=== PATIENT | female | born 1980 | race Caucasian/White ===

== ENCOUNTER 2017-06-23 09:24 | Emergency (ER) | payer OTHER ==
[2017-06-23 09:36] VITALS: O2SAT 100
--- NOTE | 2017-06-23 10:16 | C.PDOC ---
History Of Present Illness 37 y/o female presents to ED with complaints of intermittent headache for 5 days. Patient states she been taking Motrin with transient relief of headache. She admits to feeling stressed with academics. She reports frequent headaches, but has not been fully evaluated and does not know if she has migraines or family history. She describes headache starting at base and going around her whole head and varies in severity most is 8 out of 10 on pain scale. She denies this is worst headache of her life. She denies any fever, neck pain, trauma, change in vision, nausea or vomiting. Time Seen by Provider: 06/23/17 10:02 Chief Complaint (Nursing): Headache History Per: Patient History/Exam Limitations: no limitations Onset/Duration Of Symptoms: Days Current Symptoms Are (Timing): Still Present Quality: "Pain" Past Medical History Reviewed: Historical Data, Nursing Documentation, Vital Signs Vital Signs: Last Vital Signs Temp 98.5 F 06/23/17 11:13 Pulse 61 06/23/17 11:13 Resp 20 06/23/17 11:13 BP 110/76 06/23/17 11:13 Pulse Ox 100 06/23/17 11:13 - Medical History PMH: No Chronic Diseases Surgical History: No Surg Hx Family History: States: No Known Family Hx - Social History Hx Tobacco Use: No Hx Alcohol Use: No Hx Substance Use: No - Immunization History Hx Tetanus Toxoid Vaccination: No Hx Influenza Vaccination: No Hx Pneumococcal Vaccination: No Review Of Systems Constitutional: Negative for: Fever, Chills Eyes: Negative for: Vision Change, Redness Respiratory: Negative for: Shortness of Breath Gastrointestinal: Negative for: Nausea, Vomiting Musculoskeletal: Negative for: Neck Pain Neurological: Positive for: Headache. Negative for: Weakness, Numbness Physical Exam - Physical Exam Appears: Non-toxic, No Acute Distress Skin: Warm, Dry, No Diaphoretic, No Rash Head: Atraumatic, Normacephalic, No Tenderness, No Swelling Eye(s): bilateral: Normal Inspection, PERRL, EOMI Ear(s): Bilateral: Normal Nose: Normal, No Flaring Oral Mucosa: Moist Throat: Normal, No Erythema Neck: Normal ROM, Supple Chest: Symmetrical Cardiovascular: Rhythm Regular, No Murmur Respiratory: Normal Breath Sounds, No Accessory Muscle Use, No Wheezing Extremity: Bilateral: Atraumatic, No Pedal Edema, Normal Color And Temperature, Normal ROM Neurological/Psych: Oriented x3, Normal Speech, Normal Cranial Nerves, No Cerebellar Signs, Normal Motor, Normal Sensation Gait: Steady ED Course And Treatment O2 Sat by Pulse Oximetry: 100 (RA) Pulse Ox Interpretation: Normal Medical Decision Making Medical Decision Making: Impression: Tension type headache Plan: Fioricet administered Re-Eval: 1105 Patient is seated comfortably in chair and appears in no distress. she reports headache has improved. She is alert and oriented speaking clear sentences. She has no neuro deficits or nuchal rigidity. She feels comfortable going home and Rx given. Recommend stress relief, rest, analgesics and to follow up with PMD in few days. If symptoms worsen or persist, including fever, dizziness, vision changes, neck pain/stiffness then return to ER. Disposition Counseled Patient/Family Regarding: Diagnosis, Need For Followup, Rx Given - Disposition Referrals: [facility] [Outside] [facility] [Outside] [facility] Disposition: HOME/ ROUTINE Disposition Time: 11:10 Condition: IMPROVED Additional Instructions: [place] Fioricet para el dolor de kimberly cada 8 horas segn sea necesario. Puede roni Motrin para el dolor segn sea necesario. Femi un seguimiento con rouse mdico o clnica. Si los sntomas empeoran o persisten, incluyendo fiebre, mareos, cambios en la visin, dolor / rigidez en el iris, regrese a la pedro de emergencia. Prescriptions: Acetaminophen/Butalbital/Caf [Fioricet] 1 tab PO TID PRN #20 tab PRN Reason: Headache Instructions: Tension Headache Forms: [employer] (Persian) Print Language: MALTESE - POA Present On Arrival: None - Clinical Impression Clinical Impression: Tension headache - PA / TRAFFIC ADMINISTRATOR / Resident Statement MD/DO has reviewed & agrees with the documentation as recorded. - Scribe Statement The provider has reviewed the documentation as recorded by the Stewartibroc Nathan All medical record entries made by the Scribe were at my direction and personally dictated by me. I have reviewed the chart and agree that the record accurately reflects my personal performance of the history, physical exam, medical decision making, and the department course for this patient. I have also personally directed, reviewed, and agree with the discharge instructions and disposition.
[2017-06-23] MEDS ORDERED: Apap-Butalbital-Caffeine 325-50-40mg Tab PO STA (10:19)
[2017-06-23] MEDS ORDERED: Apap-Butalbital-Caffeine 325-50-40mg Tab ONE (10:45)
[2017-06-23 11:14] VITALS: BP 110/76; PULSE 61; RESP 20; TEMP 98.5
== END 2017-06-23 11:15 | disposition home or self-care (01) ==
LOC: C.ER 09:24
DX: G44.209 Tension-type headache, unspecified, not intractable (principal)

== ENCOUNTER 2017-08-11 10:01 | Emergency (ER) | payer OTHER ==
--- NOTE | 2017-08-11 12:00 | C.PDOC ---
History Of Present Illness 37 y/o female presents to ED with c/o urticaria rash to face cheeks and arms since yesterday developed after applying after sun care. Patient reports minimal itching and denies fever, chills, sob, chest pain or any other complaints at this time. Time Seen by Provider: 08/11/17 10:41 Chief Complaint (Nursing): Abnormal Skin Integrity History Per: Patient History/Exam Limitations: no limitations Onset/Duration Of Symptoms: Days Current Symptoms Are (Timing): Still Present Past Medical History Reviewed: Historical Data, Nursing Documentation, Vital Signs Vital Signs: Last Vital Signs Temp 97.9 F 08/11/17 12:08 Pulse 84 08/11/17 12:08 Resp 18 08/11/17 12:08 BP 122/77 08/11/17 12:08 Pulse Ox 98 08/11/17 16:18 - Medical History PMH: No Chronic Diseases Surgical History: No Surg Hx Family History: States: No Known Family Hx - Social History Hx Tobacco Use: No Hx Alcohol Use: No Hx Substance Use: No - Immunization History Hx Tetanus Toxoid Vaccination: No Hx Influenza Vaccination: No Hx Pneumococcal Vaccination: No Review Of Systems Constitutional: Negative for: Fever, Chills Cardiovascular: Negative for: Chest Pain Respiratory: Negative for: Shortness of Breath Gastrointestinal: Negative for: Nausea, Vomiting Skin: Positive for: Rash Physical Exam - Physical Exam Appears: Non-toxic, No Acute Distress Skin: Warm, Dry, Rash (Red patchy urticaria to cheeks. Fine rash to arms bilaterally) Head: Atraumatic, Normacephalic Eye(s): bilateral: Normal Inspection Oral Mucosa: Moist Throat: Normal, No Erythema, No Exudate Neck: Normal ROM, Supple Cardiovascular: Rhythm Regular Respiratory: Normal Breath Sounds, No Rales, No Rhonchi, No Wheezing Neurological/Psych: Oriented x3, Normal Speech, Normal Cognition ED Course And Treatment O2 Sat by Pulse Oximetry: 98 (RA) Pulse Ox Interpretation: Normal Disposition Counseled Patient/Family Regarding: Diagnosis, Rx Given - Disposition Referrals: [facility] [Outside] Disposition: HOME/ ROUTINE Disposition Time: 11:58 Condition: STABLE Prescriptions: DiphenhydrAMINE [Benadryl] 50 mg PO BID #6 cap Instructions: Hives (DC) Forms: [employer] (Latvian), Gen Discharge Inst Latvian - POA Present On Arrival: None - Clinical Impression Clinical Impression: Urticaria - Scribe Statement The provider has reviewed the documentation as recorded by the Scribroc Nathan All medical record entries made by the Stewartibroc were at my direction and personally dictated by me. I have reviewed the chart and agree that the record accurately reflects my personal performance of the history, physical exam, medical decision making, and the department course for this patient. I have also personally directed, reviewed, and agree with the discharge instructions and disposition.
[2017-08-11 12:09] VITALS: BP 122/77; PULSE 84; RESP 18; TEMP 97.9
[2017-08-11 16:18] VITALS: O2SAT 98
== END 2017-08-11 12:09 | disposition home or self-care (01) ==
LOC: C.ER 10:01
DX: L50.9 Urticaria, unspecified (principal)

== ENCOUNTER 2017-08-19 09:38 | Emergency (ER) | payer OTHER ==
--- NOTE | 2017-08-19 10:40 | C.PDOC ---
History Of Present Illness 37-year-old presents to the ER with complaints of urticaria. Patient notes headache, neck pain and states she was febrile 3 days ago. Patient reports itching in her arms and legs. Patient denies any nausea, vomiting, fever or chills. Patient was seen a week ago in the ER and was prescribed benadryl. Symptoms are unchanged Time Seen by Provider: 08/19/17 09:52 Chief Complaint (Nursing): Abnormal Skin Integrity History Per: Patient Onset/Duration Of Symptoms: Days Quality Of Symptoms: Itching, Other (erythema) Past Medical History Reviewed: Historical Data, Nursing Documentation, Vital Signs Vital Signs: Last Vital Signs Temp 98.9 F 08/19/17 10:41 Pulse 64 08/19/17 10:41 Resp 20 08/19/17 10:41 BP 108/75 08/19/17 10:41 Pulse Ox 98 08/19/17 11:15 - Medical History PMH: No Chronic Diseases Surgical History: No Surg Hx Family History: States: No Known Family Hx - Social History Hx Tobacco Use: No Hx Alcohol Use: No Hx Substance Use: No - Immunization History Hx Tetanus Toxoid Vaccination: No Hx Influenza Vaccination: No Hx Pneumococcal Vaccination: No Review Of Systems Except As Marked, All Systems Reviewed And Found Negative. Constitutional: Negative for: Fever, Chills Gastrointestinal: Negative for: Nausea, Vomiting, Diarrhea Musculoskeletal: Positive for: Neck Pain Skin: Positive for: Rash, Other (erythema) Neurological: Positive for: Headache Physical Exam - Physical Exam Appears: Non-toxic, No Acute Distress Skin: Rash (Erythematous rash to legs, arms, and cheeks), Other Head: Atraumatic, Normacephalic Eye(s): bilateral: Normal Inspection Throat: Normal Neck: Normal, Supple Chest: Symmetrical Cardiovascular: Rhythm Regular Respiratory: Normal Breath Sounds Gastrointestinal/Abdominal: Normal Exam, Other (Obese) Neurological/Psych: Oriented x3 ED Course And Treatment O2 Sat by Pulse Oximetry: 98 Medical Decision Making Medical Decision Making: Impression: Urticaria Plan: Benadryl 50mg PO Pepcid 20mg PO Prednisone 60mg PO Time 10:37 Patient reports feeling better and is stable to be discharged. Patient is instructed to follow up with PCP in 2-3 days. Disposition Counseled Patient/Family Regarding: Diagnosis, Need For Followup, Rx Given - Disposition Referrals: [facility] at [facility] [Outside] Disposition: HOME/ ROUTINE Disposition Time: 10:37 Condition: STABLE Prescriptions: DiphenhydrAMINE [Benadryl] 50 mg PO HS #6 cap Prednisone [Deltasone] 60 mg PO DAILY #12 tablet Instructions: [place] (DC) Forms: [facility] (Danish) - POA Present On Arrival: None - Clinical Impression Clinical Impression: Allergy, urticaria - Stewartibe Statement The provider has reviewed the documentation as recorded by the Mallika Alcantara Provider Attestation: All medical record entries made by the Mallika were at my direction and personally dictated by me. I have reviewed the chart and agree that the record accurately reflects my personal performance of the history, physical exam, medical decision making, and the department course for this patient. I have also personally directed, reviewed, and agree with the discharge instructions and disposition.
[2017-08-19 10:42] VITALS: BP 108/75; PULSE 64; RESP 20; TEMP 98.9
[2017-08-19 10:51] VITALS: O2SAT 98
== END 2017-08-19 10:44 | disposition home or self-care (01) ==
LOC: C.ER 09:38
DX: L50.0 Allergic urticaria (principal)

== ENCOUNTER 2018-05-04 12:26 | Emergency (ER) | payer OTHER ==
[2018-05-04 12:40] VITALS: BP 119/81; PULSE 78; RESP 18; TEMP 97.9; O2SAT 99
--- NOTE | 2018-05-04 13:09 | C.PDOC ---
History Of Present Illness 37 year old female presents to the ED for evaluation of lower back pain which began two days ago. Patient took Motrin once yesterday without improvement. She states her pain is digitally and positionally reproducible. Of note, patient works as a house keeper. She denies extremity numbness/weakness, paresthesias or falls. Time Seen by Provider: 05/04/18 12:50 Chief Complaint (Nursing): Back Pain History Per: Patient History/Exam Limitations: no limitations Onset/Duration Of Symptoms: Hrs Current Symptoms Are (Timing): Still Present Quality Of Discomfort: "Pain" Previous Symptoms: Back Pain Associated Symptoms: denies: New Weakness, New Numbness Additional History Per: Patient Past Medical History Reviewed: Historical Data, Nursing Documentation, Vital Signs Vital Signs: Last Vital Signs Temp 97.9 F 05/04/18 12:38 Pulse 78 05/04/18 12:38 Resp 18 05/04/18 12:38 BP 119/81 05/04/18 12:38 Pulse Ox 99 05/04/18 12:38 - Medical History PMH: No Chronic Diseases Surgical History: No Surg Hx Family History: States: Unknown Family Hx - Social History Hx Tobacco Use: No Hx Alcohol Use: No Hx Substance Use: No - Immunization History Hx Tetanus Toxoid Vaccination: No Hx Influenza Vaccination: No Hx Pneumococcal Vaccination: No Review Of Systems Musculoskeletal: Positive for: Back Pain (lower) Neurological: Negative for: Weakness, Numbness Physical Exam - Physical Exam Appears: Non-toxic, No Acute Distress, Other (obese female ) Skin: Normal Color, Warm, Dry Head: Atraumatic, Normacephalic Eye(s): bilateral: Normal Inspection Neck: Normal ROM, Supple Chest: Symmetrical, No Deformity Back: No Vertebral Tenderness Extremity: Normal ROM, Tenderness (bilateral sacroiliac tenderness ), Capillary Refill (less than 2 seconds ), No Deformity, No Swelling Neurological/Psych: Normal Speech, Normal Cognition, Normal Sensation ED Course And Treatment O2 Sat by Pulse Oximetry: 99 (on RA) Pulse Ox Interpretation: Normal Progress Note: Urinalysis ordered and reviewed. Toradol IM given. Medical Decision Making Medical Decision Making: lower back strain/sprain LOW susp of preg- h/o tubal lig ice/NSAIDS Educated. Disposition Doctor Will See Patient In The: Office Counseled Patient/Family Regarding: Studies Performed, Diagnosis - Disposition Referrals: [facility] [Outside] [facility] [Outside] [facility] [Outside] Disposition: HOME/ ROUTINE Disposition Time: 13:09 Condition: GOOD Additional Instructions: bolsa de hielo 1/2 hora por hora, nada caliente ibuprofeno/Advil 600 mg cada 6 horas candida necessario Instructions: Low Back Pain in Adults, Lumbar Muscle Strain (DC) Forms: [employer] (Malay) Print Language: HUNGARIAN - Clinical Impression Clinical Impression: Low back strain - Scribe Statement The provider has reviewed the documentation as recorded by the Scribe (Angela Rebolledo) Provider Attestation: All medical record entries made by the Scribe were at my direction and personally dictated by me. I have reviewed the chart and agree that the record accurately reflects my personal performance of the history, physical exam, medical decision making, and the department course for this patient. I have also personally directed, reviewed, and agree with the discharge instructions and disposition.
== END 2018-05-04 13:29 | disposition home or self-care (01) ==
LOC: C.ER 12:26
DX: S39.012A Strain of muscle, fascia and tendon of lower back, initial encounter (principal); X58.XXXA Exposure to other specified factors, initial encounter
CPT/HCPCS: 96372; 99283; J1885